=== PATIENT | male | born 1990 | race Caucasian/White ===

== ENCOUNTER 2017-06-21 17:37 | Emergency (ER) | payer MEDICAID ==
[~2017-06-21] VITALS: Ht 175.3 cm; Wt 80.0 kg
[2017-06-21] MEDS ORDERED: HYDROCODONE/ACETAMINOPHEN 5/325MG TABLET PO ONE (17:45)
[2017-06-21 19:31] VITALS: BP 116/57
== END 2017-06-21 19:33 | disposition home or self-care (01) ==
LOC: ER 17:37
DX: S63.502A Unspecified sprain of left wrist, initial encounter (principal); X50.1XXA Overexertion from prolonged static or awkward postures, initial encounter; Y93.01 Activity, walking, marching and hiking; Y92.89 Other specified places as the place of occurrence of the external cause; Y99.8 Other external cause status
CPT/HCPCS: 29125; 73090; 73110; 99284